=== PATIENT | female | born 1995 | race African-American/Black ===

== ENCOUNTER 2019-05-25 07:31 | Emergency (ER) | payer SELFPAY ==
[2019-05-25 08:08] LABS: Absolute Lymphocytes (CBC) 2.2 K/uL (0.7-4.9); Basophils % 0.5 % (0-1.3); Hematocrit 33.5 % (36.0-45.0); Lymphocytes % 26.3 % (15.3-44.8); MPV 8.4 fL (7.6-11.3); RBC Red Blood Cell Count 4.04 M/uL (3.86-4.86)
[2019-05-25 08:20] LABS: Urine Blood TRACE (NEG); Urine Glucose NEGATIVE (NEG); Urine Protein TRACE (NEG); Urine Specific Gravity 1.025 (1.005-1.030); Urine pH 5.5 (5.0-7.0)
[2019-05-25 08:24] LABS: ALT/SGPT 12 U/L (12-78); AST/SGOT 9 U/L (15-37); Albumin 3.6 g/dL (3.4-5.0); Alkaline Phosphatase 56 U/L (45-117); BUN Blood Urea Nitrogen 6 mg/dL (7-18); Bicarbonate 27 mmol/L (21-32); Bilirubin Direct 0.1 mg/dL (0-0.2); Bilirubin Total 0.6 mg/dL (0.2-1.0); Glucose Level 91 mg/dL (74-106); Lipase 53 U/L (73-393); Potassium 3.3 mmol/L (3.5-5.1); Protein, Total 8.1 g/dL (6.4-8.2); Sodium Level 142 mmol/L (136-145)
[2019-05-25] MEDS ORDERED: KETOROLAC 30 MG/ML INJ ONE (08:33)
[2019-05-25 08:53] LABS: Urine Culture Reflex Order REFLEXED
[2019-05-25 08:55] LABS: Urine Bacteria 20-50 /HPF (<20); Urine RBC <5 /HPF (NONE SEEN)
--- NOTE | 2019-05-25 09:50 | EDPHYS ---
Physician Documentation [facility] Name: Adrienne Mcgraw Age: 23 yrs Sex: Female : 1995 Arrival Date: 05/25/2019 Time: 07:33 Bed 5 Private MD: ED Physician Hao Sahu HPI: 05/25 08:31 This 23 yrs old Black Female presents to ER via Ambulatory with complaints of Abdominal kb Pain. 08:31 The patient presents with abdominal pain in the upper abdomen. Onset: The kb symptoms/episode began/occurred 1 week(s) ago. The symptoms radiate to right back, the right shoulder. Associated signs and symptoms: none. The symptoms are described as intermittent. Modifying factors: The symptoms are alleviated by nothing, the symptoms are aggravated by nothing. Severity of pain: At its worst the pain was moderate in the emergency department the pain is unchanged. The patient has not experienced similar symptoms in the past. The patient has not recently seen a physician. Pt reports she started a new job and moves a lot of stuff. Reports upper abd pain for a week. Thinks she pulled a muscle because it gets worse when she stretches or twists her torso. Came in today because it has been persistent.. Historical: - Allergies: 08:00 No Known Allergies; jl7 - Home Meds: 08:00 None [Active]; jl7 - PMHx: 08:00 None; jl7 - PSHx: 08:00 None; jl7 - Immunization history:: Adult Immunizations unknown. - Social history:: Smoking status: Patient/guardian denies using tobacco. - Ebola Screening: : No symptoms or risks identified at this time. ROS: 08:43 Constitutional: Negative for fever, chills, and weight loss, ENT: Negative for injury, kb pain, and discharge, Neck: Negative for injury, pain, and swelling, Cardiovascular: Negative for chest pain, palpitations, and edema, Respiratory: Negative for shortness of breath, cough, wheezing, and pleuritic chest pain, Back: Negative for injury and pain, MS/Extremity: Negative for injury and deformity, Skin: Negative for injury, rash, and discoloration, Neuro: Negative for headache, weakness, numbness, tingling, and seizure. 08:43 Abdomen/GI: Positive for abdominal pain, Negative for nausea, vomiting, and diarrhea, constipation, abdominal cramps, abdominal distension, anorexia. Exam: 08:39 Constitutional: This is a well developed, well nourished patient who is awake, alert, kb and in no acute distress. Head/Face: Normocephalic, atraumatic. Chest/axilla: Normal chest wall appearance and motion. Nontender with no deformity. No lesions are appreciated. Cardiovascular: Regular rate and rhythm with a normal S1 and S2. No gallops, murmurs, or rubs. Normal PMI, no JVD. No pulse deficits. Respiratory: Lungs have equal breath sounds bilaterally, clear to auscultation and percussion. No rales, rhonchi or wheezes noted. No increased work of breathing, no retractions or nasal flaring. Back: No spinal tenderness. No costovertebral tenderness. Full range of motion. Skin: Warm, dry with normal turgor. Normal color with no rashes, no lesions, and no evidence of cellulitis. MS/ Extremity: Pulses equal, no cyanosis. Neurovascular intact. Full, normal range of motion. Neuro: Awake and alert, GCS 15, oriented to person, place, time, and situation. Cranial nerves II-XII grossly intact. Motor strength 5/5 in all extremities. Sensory grossly intact. Cerebellar exam normal. Normal gait. 08:39 Abdomen/GI: Inspection: abdomen appears normal, Bowel sounds: normal, in all quadrants, Palpation: soft, in all quadrants, mild abdominal tenderness, in the right upper quadrant and left upper quadrant. Vital Signs: 08:00 BP 115 / 77; Pulse 90; Resp 16 S; Temp 98(O); Pulse Ox 100% on R/A; Weight 72.57 kg jl7 (R); Pain 8/10; 09:00 Pain 3/10; jl7 09:37 BP 113 / 65; Pulse 66; Resp 16 S; Pulse Ox 100% on R/A; Pain 3/10; jl7 MDM: 07:37 Patient medically screened. kb 08:39 Data reviewed: vital signs, nurses notes. Data interpreted: Pulse oximetry: on room air kb is 100 %. Interpretation: normal. 09:48 Counseling: I had a detailed discussion with the patient and/or guardian regarding: the kb historical points, exam findings, and any diagnostic results supporting the discharge/admit diagnosis, lab results, radiology results, the need for outpatient follow up, a family practitioner, to return to the emergency department if symptoms worsen or persist or if there are any questions or concerns that arise at home. 05/25 07:46 Order name: Basic Metabolic Panel; Complete Time: 08:25 kb 05/25 07:46 Order name: CBC with Diff; Complete Time: 08:14 kb 05/25 07:46 Order name: Hepatic Function; Complete Time: 08:25 kb 05/25 07:46 Order name: Lipase; Complete Time: 08:25 kb 05/25 08:07 Order name: Urine Microscopic Only; Complete Time: 08:57 jl7 05/25 08:10 Order name: Urine Dipstick--Ancillary (enter results); Complete Time: 08:21 em1 05/25 07:46 Order name: IV Saline Lock; Complete Time: 08:03 kb 05/25 07:46 Order name: Labs collected and sent; Complete Time: 08:03 kb 05/25 07:46 Order name: Urine Dipstick-Ancillary (obtain specimen); Complete Time: 08:03 kb 05/25 08:10 Order name: Urine --Ancillary (enter results); Complete Time: 08:21 em1 05/25 08:26 Order name: US Abdomen Limited; Complete Time: 09:56 kb 05/25 08:59 Order name: Urine Culture EDMS Administered Medications: 08:33 Drug: TORadol - Ketorolac 15 mg Route: IVP; Site: right antecubital; jl7 09:00 Follow up: Pain 3/10 Adult; Response: No adverse reaction; Pain is decreased jl7 Disposition: 19:32 Co-signature as Attending Physician, Suraj Wyatt MD. Disposition: 05/25/19 09:49 Discharged to Home. Impression: Upper abdominal pain, unspecified. - Condition is Stable. - Discharge Instructions: Abdominal Pain, Adult, [id number]. - Prescriptions for Cyclobenzaprine 10 mg Oral Tablet - take 1 tablet by ORAL route every 8 hours As needed; 21 tablet. Diclofenac Sodium 75 mg Oral Tablet, Delayed Release (E.C.) - take 1 tablet by ORAL route 2 times per day As needed; 30 tablet. - Medication Reconciliation Form, Thank You Letter, Antibiotic Education, Prescription Opioid Use form. - Follow up: Emergency Department; When: As needed; Reason: Worsening of condition. Follow up: Private Physician; When: 2 - 3 days; Reason: Recheck today's complaints, Continuance of care, Re-evaluation by your physician. Signatures: Dispatcher [employer] EDRita Morris, Elyssa Yin RN RN jl7 Suraj Wyatt MD MD gs Corrections: (The following items were deleted from the chart) 10:37 09:49 05/25/2019 09:49 Discharged to Home. Impression: Upper abdominal pain, jl7 unspecified. Condition is Stable. Forms are Medication Reconciliation Form, Thank You Letter, Antibiotic Education, Prescription Opioid Use. Follow up: Emergency Department; When: As needed; Reason: Worsening of condition. Follow up: Private Physician; When: 2 - 3 days; Reason: Recheck today's complaints, Continuance of care, Re-evaluation by your physician. kb
--- NOTE | 2019-05-25 09:50 | ER ---
Nurse's Notes [facility] Name: Adrienne Mcgraw Age: 23 yrs Sex: Female : 1995 Arrival Date: 05/25/2019 Time: 07:33 Bed 5 Private MD: Diagnosis: Upper abdominal pain, unspecified Presentation: 05/25 07:42 Presenting complaint: Patient states: mid bad pian X 1 week, thought she may have iw pulled a muscle, pain is aggravated by movement, denies n/v/d. Transition of care: patient was not received from another setting of care. Onset of symptoms was May 18, 2019. Risk Assessment: Do you want to hurt yourself or someone else? Patient reports no desire to harm self or others. Initial Sepsis Screen: Does the patient meet any 2 criteria? No. Patient's initial sepsis screen is negative. Does the patient have a suspected source of infection? No. Patient's initial sepsis screen is negative. Care prior to arrival: None. 07:42 Method Of Arrival: Ambulatory iw 07:42 Acuity: DANIELA 3 iw Triage Assessment: 08:00 General: Appears in no apparent distress. uncomfortable, Behavior is calm, cooperative, jl7 appropriate for age. Pain: Complains of pain in right upper quadrant and left upper quadrant Pain does not radiate. Pain currently is 8 out of 10 on a pain scale. Quality of pain is described as sore Pain began 1 week ago Is continuous. EENT: No signs and/or symptoms were reported regarding the EENT system. Neuro: Level of Consciousness is awake, alert, obeys commands, Oriented to person, place, time. Cardiovascular: Patient's skin is warm and dry. Respiratory: Airway is patent Respiratory effort is even, unlabored, shallow, Respiratory pattern is regular, symmetrical. GI: Abdomen is flat, non-distended, Stools are reported to be normal. Abd is soft X 4 quads Abdomen is tender to palpation in right upper quadrant and left upper quadrant Guarding noted in right upper quadrant and left upper quadrant. : No signs and/or symptoms were reported regarding the genitourinary system. Derm: Skin is pink, warm \T\ dry. Musculoskeletal: No signs and/or symptoms reported regarding the musculoskeletal system. Historical: - Allergies: 08:00 No Known Allergies; jl7 - Home Meds: 08:00 None [Active]; jl7 - PMHx: 08:00 None; jl7 - PSHx: 08:00 None; jl7 - Immunization history:: Adult Immunizations unknown. - Social history:: Smoking status: Patient/guardian denies using tobacco. - Ebola Screening: : No symptoms or risks identified at this time. Screenin:02 Abuse screen: Denies threats or abuse. Denies injuries from another. Nutritional jl7 screening: No deficits noted. Tuberculosis screening: No symptoms or risk factors identified. Fall Risk IV access (20 points). Total Dill Fall Scale indicates No Risk (0-24 pts). Assessment: 08:02 General: See triage assessment. jl7 09:00 Reassessment: Patient appears in no apparent distress at this time. Patient and/or jl7 family updated on plan of care and expected duration. Pain level reassessed. Patient is alert, oriented x 3, equal unlabored respirations, skin warm/dry/pink. Pain rated 3/10 at this time. Patient states feeling better. 10:00 Reassessment: Patient appears in no apparent distress at this time. No changes from jl7 previously documented assessment. Patient and/or family updated on plan of care and expected duration. Pain level reassessed. Patient is alert, oriented x 3, equal unlabored respirations, skin warm/dry/pink. Vital Signs: 08:00 BP 115 / 77; Pulse 90; Resp 16 S; Temp 98(O); Pulse Ox 100% on R/A; Weight 72.57 kg jl7 (R); Pain 8/10; 09:00 Pain 3/10; jl7 09:37 BP 113 / 65; Pulse 66; Resp 16 S; Pulse Ox 100% on R/A; Pain 3/10; jl7 ED Course: 07:33 Patient arrived in ED. as 07:36 Rita Lauren FNP-C [facility]. kb 07:36 Suraj Wyatt MD is Attending Physician. kb 07:37 Attending Physician role handed off by Suraj Wyatt MD ondina 07:37 Hao Sahu MD is Attending Physician. ondina 07:43 Triage completed. iw 07:59 Elyssa Brasher, VALERIE is Primary Nurse. jl7 08:00 Arm band placed on right wrist. jl7 08:02 Patient has correct armband on for positive identification. Placed in gown. Bed in low jl7 position. Call light in reach. Side rails up X 1. Pulse ox on. NIBP on. Warm blanket given. 08:02 Initial lab(s) drawn, by me, sent to lab. Urine collected: clean catch specimen. jl7 Inserted saline lock: 22 gauge in right antecubital area, using aseptic technique. Blood collected. 09:33 Ultrasound completed. Patient tolerated well. sg3 09:35 US Abdomen Limited In Process Unspecified. EDMS 10:36 No provider procedures requiring assistance completed. IV discontinued, intact, jl7 bleeding controlled, No redness/swelling at site. Pressure dressing applied. Administered Medications: 08:33 Drug: TORadol - Ketorolac 15 mg Route: IVP; Site: right antecubital; jl7 09:00 Follow up: Pain 12/22 Adult; Response: No adverse reaction; Pain is decreased jl7 Outcome: 09:49 Discharge ordered by . kb 10:36 Discharged to home ambulatory. jl7 10:36 Condition: stable 10:36 Discharge instructions given to patient, Instructed on discharge instructions, follow up and referral plans. medication usage, Demonstrated understanding of instructions, follow-up care, medications, Prescriptions given X 2. 10:37 Patient left the ED. jl7 Signatures: Dispatcher [employer] EDRita Morris, BAKER APPRENTICE-C BAKER APPRENTICE-Hao Dunlap MD MD cha Martinez, Amelia as Williams, Irene, Elyssa Hernandez RN, RN RN jl7 Godinez, Sarah sg3
--- NOTE | 2019-05-25 09:55 | RAD REPORT ---
EXAM DESCRIPTION: US - Abdomen Exam Limited - 05/25/2019 9:34 am CLINICAL HISTORY: Abdominal pain, right upper quadrant pain COMPARISON: None. FINDINGS: No gallstones, sludge or other abnormalities within the gallbladder lumen. There is no wal l thickening or pericholecystic fluid. No common duct stone or biliary tree dilatation identified. IMPRESSION: Normal gallbladder and biliary tree ultrasound.
== END 2019-05-25 10:37 | disposition home or self-care (01) ==
LOC: ER 07:31
DX: R10.10 Upper abdominal pain, unspecified (principal)
CPT/HCPCS: 36415; 76705; 80048; 80076; 81003; 81015; 81025; 83690; 85025; 87086; 87088; 96374; 99284